=== PATIENT | male | born 1960 | race Caucasian/White ===

== ENCOUNTER → 2016-09-27 | Outpatient (CLI) | payer BC ==
[~2016-09-27] MED LIST: AMBIEN CR12.5 MG PO; ANTIVERT/2525 M1 PO; ASPIRIN81 M1 PO; ATIVAN1 MG PO; BENICAR HCT 12.1 TA1 PO; CO Q-10 100 MG-1 SGL PO; CRESTOR5 MG PO; DEXILANT60 M1 PO; DIFLUCAN100 MG PO; FISH OIL1000 MG PO; GINGER ROOT550 MG PO; HYCODAN,HYDROME10 ML PO; HYDR25T PO; K-DUR 2020 MEQ PO; K-DUR 20MEQ20 MEQ PO; LEVOFLOXACIN500 MG PO; LISINOPRIL10 MG PO; LISINOPRIL20 MG PO; LORATADINE10 M1 PO; MOTRIN800 MG PO; MULTIVITAMIN1 CTB PO; Motrin,Rufen800 MG PO; NORVASC10 MG PO; NORVASC2.5 MG PO; OMEPRAZOLE20 M2 PO; PEPCID20 MG PO; REGLAN10 M1 PO; VITAMIN D400 I1 PO; ZOFRAN ODT4 MG SL
--- NOTE | ~2016-09-27 | PR ---
[place], [place] PROGRESS NOTE NAME: NBA LEONARD UNIT #: [id number] ROOM: DOCTOR: MARJAN WYATT MD,FRANCISCOBIRTHDATE: [birth year] DOS: 10/02/2016 HOLTER MONITOR Holter monitor was done for 48 hours. The patient had 4 hours 27 minutes of sinus bradycardia with a minimal heart rate of 47. The patient had 30 minutes of tachycardia at the time he was exercising with a heart rate of 160, supraventricular beats 6. No ventricular arrhythmias were seen. Holter monitor is remarkable for sinus bradycardia of an athletic person with sinus tachycardia during exercise. No other abnormalities are seen. RAMON PHILLIP MD CM:PNTRANS [id number] FRANCISCO WYATT MD 10/05/16 0642 RUFINO [email or web address].TM
--- NOTE | ~2016-09-27 | HM ---
[place], [place] HOLTER MONITOR REPORT NAME: NBA LEONARD UNIT #: [id number] ROOM: DOCTOR: MARJAN WYATT MD,FRANCISCO BIRTHDATE: [birth year] DOS: 10/02/2016 HOLTER MONITOR Holter monitor was done for 48 hours. The patient had 4 hours 27 minutes of sinus bradycardia with a minimal heart rate of 47. The patient had 30 minutes of tachycardia at the time he was exercising with a heart rate of 160, supraventricular beats 6. No ventricular arrhythmias were seen. Holter monitor is remarkable for sinus bradycardia of an athletic person with sinus tachycardia during exercise. No other abnormalities are seen. RAMON PHILLIP MD CM:HOLTER:HOLTER MONITOR REPORT [id number] [id number] FRANCISCO WYATT MD
== END | disposition home or self-care (01) ==
LOC: CARD 08:26
DX: R00.2 Palpitations (principal)

== ENCOUNTER → 2016-09-29 | Outpatient (CLI) | payer BC ==
[2016-09-29 08:49] LABS: HEMOGLOBIN A1c 5.4 % (4.8-5.6)
[2016-09-29 08:54] LABS: ALBUMIN 4.2 gm/dl (3.1-4.5); ALKALINE PHOSPHATASE 129 U/L (45-117); BILIRUBIN, TOTAL 0.9 mg/dl (0.2-1.0); BUN 16 mg/dl (7-24); CARBON DIOXIDE 30 mmol/L (21-32); CHLORIDE 104 mmol/L (98-107); CHOLESTEROL 138 mg/dL (<200); EST GLOM FILT AFRICAN AMERICAN > 60 ml/min; GLUCOSE 114 mg/dL (65-99); HDL CHOLESTEROL 43 mg/dl (40-60); LDL CHOLESTEROL 78 mg/dL (9-159); POTASSIUM 3.7 mmol/L (3.5-5.1); SGOT/AST 14 IU/L (3-35); SGPT/ALT 24 U/L (12-78); SODIUM 141 mmol/L (136-145); TRIGLYCERIDES 87 mg/dl (<150); VLDL CHOLESTEROL 17 mg/dL (6-40)
[2016-09-30 17:09] LABS: TESTOSTERONE FREE, (DIRECT) 8.1 pg/mL (7.2-24.0)
== END | disposition home or self-care (01) ==
LOC: LAB 07:38
PROVIDERS: Internal Medicine Endocrinology, Diabetes & Metabolism
DX: I10 Essential (primary) hypertension (principal); E29.1 Testicular hypofunction; R73.01 Impaired fasting glucose

== ENCOUNTER → 2017-02-26 | Day surgery (SDC) | payer BC ==
[~2017-02-26] VITALS: Ht 182.8 cm; Wt 89.8 kg
[~2017-02-26] MED LIST changes: +LOPRESSOR25 MG PO
--- NOTE | ~2017-02-26 | O ---
[place], [place] OPERATIVE NOTE NAME: NBA LEONARD UNIT #: [id number] ROOM: DOCTOR: RAMILA TANEDDIE BIRTHDATE: [birth year] DOS: HISTORY OF PRESENT ILLNESS: A 56-year-old patient who presented with chief complaint of epigastric abdominal pain, right-sided chest pain and distress. PAST MEDICAL HISTORY: Hypertension, coronary artery disease and recent stent. PAST SURGICAL HISTORY: Multiple small orthopedic surgeries. FAMILY HISTORY: Noncontributory. PROCEDURE: Today's procedure part of investigation is panendoscopy plus biopsy. PREMEDICATION: Versed and Diprivan. SCOPE: Olympus forward-viewing gastroscope Q10 video. REPORT: After putting the patient in the left lateral position and after application of lubricant to the scope, the scope was introduced. Thereafter, under direct visualization, I advanced through the length of esophagus without difficulty. A tiny hiatal hernia was noticed. Gastric pouch was entered. Mild gastritis was seen. Duodenal bulb, second and third part are within normal limit. No ulceration, no obstruction, no pathology identified. No active bleeding, no other issues of concern clinically noticed. GI reflection of the scope reveals cardia to be benign. Air was suctioned out. The patient was extubated, tolerated procedure well. IMPRESSION: Very mild gastritis, very small tiny hiatal hernia about 1 cm. PLAN AND DISCUSSION: Continuation with Protonix, supportive management. Gaviscon 1 tablet p.o. a.c. meals and p.r.n. and 1 at bedtime, antireflux measures with elevation of the head of the bed 6 inches all time and I will be discussing with him. I have reviewed his CT scan of the abdomen and pelvis from past years and I have reviewed his CTA of the chest from past years. They have been always negative. He has recently got cardiac catheterization and 90%, one vessel disease was stented. He is on Plavix. If he is uncertain of his status of the chest distress, then I will reorganize another CT scan of the chest in future. At this present time, he most likely is anxious because of the occult pathology that may be on board. [place], [place] OPERATIVE NOTE NAME: NBA LEONARD UNIT #: [id number] ROOM: DOCTOR: RAMILA TAN,EDDIE BIRTHDATE: [birth year] EDDIE MCGRATH MD CM:OPRECORD:OPERATIVE NOTE [id number] EDDIE MCGRATH MD 02/26/17 1606 interface
[2017-02-26 12:30] VITALS: BP 117/52
[2017-02-26 13:25] VITALS: BP 87/35
[2017-02-26 13:40] VITALS: BP 112/56
[2017-02-26 13:55] VITALS: BP 119/63
== END | disposition home or self-care (01) ==
LOC: SDC 12:37
DX: K29.50 Unspecified chronic gastritis without bleeding (principal); K44.9 Diaphragmatic hernia without obstruction or gangrene; I10 Essential (primary) hypertension; I25.10 Atherosclerotic heart disease of native coronary artery without angina pectoris; Z79.899 Other long term (current) drug therapy; Z98.890 Other specified postprocedural states; K21.9 Gastro-esophageal reflux disease without esophagitis; E78.00 Pure hypercholesterolemia, unspecified; Z95.818 Presence of other cardiac implants and grafts; Z83.3 Family history of diabetes mellitus; Z82.49 Family history of ischemic heart disease and other diseases of the circulatory system; Z82.3 Family history of stroke

== ENCOUNTER → 2017-03-01 | Outpatient (CLI) | payer BC ==
[2017-03-01 14:01] LABS: EST GLOM FILT AFRICAN AMERICAN > 60 ml/min
== END | disposition home or self-care (01) ==
LOC: LAB 01:46 → CT 14:00 → LAB 14:00
PROVIDERS: Internal Medicine Gastroenterology
DX: R91.1 Solitary pulmonary nodule (principal); I10 Essential (primary) hypertension; Z95.5 Presence of coronary angioplasty implant and graft

== ENCOUNTER → 2017-03-04 | Outpatient (CLI) | payer BC ==
[2017-03-04 17:26] LABS: BASO % 0.6 % (0.0-1.0); EOS # 0.1 10*3/uL (0.0-0.4); HEMATOCRIT 43.7 % (42.0-52.0); HEMOGLOBIN 14.9 g/dl (14.0-18.0); LYMPH # 1.9 10*3/uL (1.3-4.4); MEAN CELL VOLUME 88.6 fl (80.0-94.0); MEAN CORPUSCULAR HGB 30.2 pg (27.0-31.0); MEAN CORPUSCULAR HGB CONC 34.1 g/dl (33.0-37.0); MEAN PLATELET VOLUME 10.2 fl (9.6-12.3); MONO # 0.6 10*3/uL (0.1-1.0); MONO % 8.5 % (3.0-9.0); NEUT # 4.2 10*3/uL (2.3-7.9); NEUT % 60.6 % (47.0-73.0); PLATELET COUNT AUTOMATED 218 10*3/uL (130-400); RED BLOOD COUNT 4.93 10*6/uL (4.50-5.90); RED CELL DISTRI WIDTH 11.5 % (0-14.5); WHITE BLOOD COUNT 6.9 10*3/uL (4.8-10.8)
[2017-03-04 17:42] LABS: HEMOGLOBIN A1c 5.7 % (4.8-5.6)
[2017-03-04 17:45] LABS: ALKALINE PHOSPHATASE 99 U/L (45-117); BILIRUBIN, TOTAL 0.5 mg/dl (0.2-1.0); BUN 12 mg/dl (7-24); CARBON DIOXIDE 30 mmol/L (21-32); CHLORIDE 106 mmol/L (98-107); EST GLOM FILT AFRICAN AMERICAN > 60 ml/min; GLUCOSE 98 mg/dL (65-99); MAGNESIUM 2.4 mg/dL (1.5-2.1); PHOSPHOROUS 2.6 mg/dL (2.5-4.9); POTASSIUM 4.1 mmol/L (3.5-5.1); SGOT/AST 14 IU/L (3-35); SGPT/ALT 28 U/L (12-78); SODIUM 144 mmol/L (136-145); TOTAL PROTEIN 7.1 gm/dL (6.4-8.2)
[2017-03-04 17:46] LABS: FREE T4 1.08 ng/dl (0.76-1.46)
[2017-03-04 17:51] LABS: THYROID STIM HORMONE (HS) 0.657 uIU/ml (0.358-4.75)
[2017-03-04 19:15] LABS: VITAMIN D, 25-HYDROXY 38.3 ng/mL (30-100)
[2017-03-04 19:16] LABS: FOLIC ACID 10.38 ng/mL (>5.38)
== END | disposition home or self-care (01) ==
LOC: LAB 16:58
PROVIDERS: Emergency Medicine
DX: R53.83 Other fatigue (principal); R06.02 Shortness of breath; R42 Dizziness and giddiness

== ENCOUNTER → 2017-03-06 | Outpatient (CLI) | payer BC ==
[~2017-03-06] MED LIST changes: +ASPIRIN81 MG PO; +CLOPIDOGREL75 MG PO; +ESCITALOPRAM OX10 MG PO; +PROTONIX20 MG PO
== END | disposition home or self-care (01) ==
LOC: CARD 11:55
DX: I08.1 Rheumatic disorders of both mitral and tricuspid valves (principal)

== ENCOUNTER 2017-03-07 05:41 | Emergency (ER) | payer BC ==
[~2017-03-07] VITALS: Ht 182.8 cm; Wt 89.4 kg
[~2017-03-07 05:41] MED LIST changes: -ASPIRIN81 MG PO; -CLOPIDOGREL75 MG PO; -ESCITALOPRAM OX10 MG PO; -PROTONIX20 MG PO
[2017-03-07] MEDS ORDERED: PROTONIX20 MG PO (05:47)
[2017-03-07] MEDS ORDERED: ASPIRIN81 MG PO (05:48)
[2017-03-07] MEDS ORDERED: CLOPIDOGREL75 MG PO (05:49)
[2017-03-07] MEDS ORDERED: ESCITALOPRAM OX10 MG PO (05:50)
[2017-03-07 06:17] LABS: BASO # 0.1 10*3/uL (0.0-0.1); BASO % 0.8 % (0.0-1.0); EOS # 0.2 10*3/uL (0.0-0.4); EOS % 2.4 % (1.0-4.0); HEMATOCRIT 42.8 % (42.0-52.0); HEMOGLOBIN 14.6 g/dl (14.0-18.0); LYMPH # 1.9 10*3/uL (1.3-4.4); LYMPH % 29.6 % (27.0-41.0); MEAN CELL VOLUME 87.9 fl (80.0-94.0); MEAN CORPUSCULAR HGB CONC 34.1 g/dl (33.0-37.0); MEAN PLATELET VOLUME 10.7 fl (9.6-12.3); MONO # 0.5 10*3/uL (0.1-1.0); MONO % 7.9 % (3.0-9.0); NEUT # 3.9 10*3/uL (2.3-7.9); PLATELET COUNT AUTOMATED 182 10*3/uL (130-400); RED BLOOD COUNT 4.87 10*6/uL (4.50-5.90); RED CELL DISTRI WIDTH 11.5 % (0-14.5); WHITE BLOOD COUNT 6.6 10*3/uL (4.8-10.8)
[2017-03-07 06:26] LABS: PROTHROMBIN TIME 10.8 SECONDS (9.0-12.4)
[2017-03-07 07:14] LABS: CHLORIDE 106 mmol/L (98-107); POTASSIUM 4.1 mmol/L (3.5-5.1); SODIUM 143 mmol/L (136-145)
[2017-03-07 07:29] LABS: ALBUMIN 3.9 gm/dl (3.1-4.5); ALKALINE PHOSPHATASE 89 U/L (45-117); BILIRUBIN, TOTAL 0.6 mg/dl (0.2-1.0); BUN 10 mg/dl (7-24); CARBON DIOXIDE 27 mmol/L (21-32); EST GLOM FILT AFRICAN AMERICAN > 60 ml/min; GLUCOSE 121 mg/dL (65-99); MAGNESIUM 2.5 mg/dL (1.5-2.1); SGOT/AST 18 IU/L (3-35); SGPT/ALT 26 U/L (12-78); TOTAL PROTEIN 6.5 gm/dL (6.4-8.2)
[2017-03-07 07:30] LABS: TROPONIN I < 0.015 ng/ml (<0.045)
[2017-03-07 07:31] VITALS: BP 142/75
== END 2017-03-07 08:01 | disposition short-term general hospital (02) ==
LOC: ED 05:41
PROVIDERS: Emergency Medicine Emergency Medical Services
DX: R00.1 Bradycardia, unspecified (principal); F41.9 Anxiety disorder, unspecified; R06.02 Shortness of breath; R68.84 Jaw pain; R42 Dizziness and giddiness; R55 Syncope and collapse; R61 Generalized hyperhidrosis; I25.10 Atherosclerotic heart disease of native coronary artery without angina pectoris; Z88.6 Allergy status to analgesic agent; Z88.8 Allergy status to other drugs, medicaments and biological substances; Z79.899 Other long term (current) drug therapy; Z79.82 Long term (current) use of aspirin; Z98.61 Coronary angioplasty status

== ENCOUNTER 2017-03-29 02:21 | Emergency (ER) | payer BC ==
[~2017-03-29] VITALS: Ht 182.8 cm; Wt 90.7 kg
[~2017-03-29 02:21] MED LIST changes: +ASPIRIN81 MG PO; +CLOPIDOGREL75 MG PO; +ESCITALOPRAM OX10 MG PO; +PROTONIX20 MG PO
[2017-03-29] MEDS ORDERED: TESTOSTERO200 MG/10 IM (02:40)
[2017-03-29] MEDS ORDERED: ATIVAN0.5 MG PO (02:44)
[2017-03-29 03:14] LABS: BASO # 0.1 10*3/uL (0.0-0.1); BASO % 0.7 % (0.0-1.0); EOS # 0.3 10*3/uL (0.0-0.4); EOS % 4.3 % (1.0-4.0); HEMATOCRIT 42.7 % (42.0-52.0); HEMOGLOBIN 14.6 g/dl (14.0-18.0); LYMPH # 2.8 10*3/uL (1.3-4.4); LYMPH % 36.9 % (27.0-41.0); MEAN CELL VOLUME 87.1 fl (80.0-94.0); MEAN CORPUSCULAR HGB 29.8 pg (27.0-31.0); MEAN CORPUSCULAR HGB CONC 34.2 g/dl (33.0-37.0); MEAN PLATELET VOLUME 10.5 fl (9.6-12.3); MONO # 0.8 10*3/uL (0.1-1.0); MONO % 10.4 % (3.0-9.0); NEUT # 3.7 10*3/uL (2.3-7.9); NEUT % 47.6 % (47.0-73.0); PLATELET COUNT AUTOMATED 196 10*3/uL (130-400); RED CELL DISTRI WIDTH 11.9 % (0-14.5); WHITE BLOOD COUNT 7.7 10*3/uL (4.8-10.8)
[2017-03-29 03:31] LABS: ALBUMIN 3.7 gm/dl (3.1-4.5); ALKALINE PHOSPHATASE 101 U/L (45-117); BILIRUBIN, TOTAL 0.4 mg/dl (0.2-1.0); BUN 14 mg/dl (7-24); CARBON DIOXIDE 28 mmol/L (21-32); CHLORIDE 107 mmol/L (98-107); EST GLOM FILT AFRICAN AMERICAN > 60 ml/min; GLUCOSE 99 mg/dL (65-99); MAGNESIUM 2.4 mg/dL (1.5-2.1); POTASSIUM 3.7 mmol/L (3.5-5.1); SGOT/AST 17 IU/L (3-35); SGPT/ALT 22 U/L (12-78); SODIUM 144 mmol/L (136-145); TOTAL PROTEIN 6.4 gm/dL (6.4-8.2)
[2017-03-29 03:32] LABS: TROPONIN I < 0.015 ng/ml (<0.045)
[2017-03-29 06:37] VITALS: BP 130/64
[2017-03-29] MEDS ORDERED: XANAX0.25 MG PO (07:07)
== END 2017-03-29 07:18 | disposition home or self-care (01) ==
LOC: ED 02:21
PROVIDERS: Emergency Medicine Emergency Medical Services
DX: F41.9 Anxiety disorder, unspecified (principal); R42 Dizziness and giddiness; R07.89 Other chest pain; I25.10 Atherosclerotic heart disease of native coronary artery without angina pectoris; K21.9 Gastro-esophageal reflux disease without esophagitis; Z88.6 Allergy status to analgesic agent; Z88.8 Allergy status to other drugs, medicaments and biological substances; Z79.82 Long term (current) use of aspirin; Z79.899 Other long term (current) drug therapy; Z95.1 Presence of aortocoronary bypass graft

== ENCOUNTER → 2017-05-25 | Outpatient (CLI) | payer BC ==
[~2017-05-25] MED LIST changes: +ATIVAN0.5 MG PO; +TESTOSTERO200 MG/10 IM; +XANAX0.25 MG PO
[2017-05-25 13:07] LABS: ALBUMIN 3.9 gm/dl (3.1-4.5); ALKALINE PHOSPHATASE 106 U/L (45-117); BUN 13 mg/dl (7-24); CHLORIDE 105 mmol/L (98-107); CREATININE 1.16 mg/dL (0.70-1.30); SGOT/AST 15 IU/L (3-35); SGPT/ALT 29 U/L (12-78); SODIUM 141 mmol/L (136-145); TOTAL PROTEIN 7.1 gm/dL (6.4-8.2)
== END | disposition home or self-care (01) ==
LOC: LAB 12:05 → US 12:30
PROVIDERS: Internal Medicine
DX: K21.9 Gastro-esophageal reflux disease without esophagitis (principal); R10.11 Right upper quadrant pain; K76.89 Other specified diseases of liver; R10.84 Generalized abdominal pain

== ENCOUNTER 2017-06-28 01:14 | Emergency (ER) | payer BC ==
[~2017-06-28] VITALS: Ht 182.8 cm; Wt 89.4 kg
[2017-06-28] MEDS ORDERED: PRINIVIL10 MG PO (01:30)
[2017-06-28 05:47] VITALS: BP 138/80
== END 2017-06-28 05:53 | disposition home or self-care (01) ==
LOC: ED 01:14
DX: G43.919 Migraine, unspecified, intractable, without status migrainosus (principal); K21.9 Gastro-esophageal reflux disease without esophagitis; Z88.6 Allergy status to analgesic agent; Z88.8 Allergy status to other drugs, medicaments and biological substances; Z79.899 Other long term (current) drug therapy; Z79.82 Long term (current) use of aspirin

== ENCOUNTER 2017-07-01 10:22 | Emergency (ER) | payer BC ==
[~2017-07-01] VITALS: Ht 182.8 cm; Wt 89.4 kg
[~2017-07-01 10:22] MED LIST changes: +PRINIVIL10 MG PO
[2017-07-01 11:42] LABS: BASO % 0.5 % (0.0-1.0); EOS # 0.2 10*3/uL (0.0-0.4); EOS % 1.9 % (1.0-4.0); HEMATOCRIT 45.9 % (42.0-52.0); HEMOGLOBIN 15.5 g/dl (14.0-18.0); LYMPH # 1.8 10*3/uL (1.3-4.4); MEAN CORPUSCULAR HGB 28.7 pg (27.0-31.0); MEAN CORPUSCULAR HGB CONC 33.8 g/dl (33.0-37.0); MEAN PLATELET VOLUME 10.1 fl (9.6-12.3); MONO # 0.7 10*3/uL (0.1-1.0); MONO % 8.4 % (3.0-9.0); NEUT # 5.7 10*3/uL (2.3-7.9); PLATELET COUNT AUTOMATED 221 10*3/uL (130-400); WHITE BLOOD COUNT 8.4 10*3/uL (4.8-10.8)
[2017-07-01 11:57] LABS: ACT PARTIAL THROMBO TIME 25.8 SECONDS (20.8-31.5)
[2017-07-01 11:58] LABS: ALKALINE PHOSPHATASE 111 U/L (45-117); BUN 13 mg/dl (7-24); CHLORIDE 105 mmol/L (98-107); CREATININE 0.95 mg/dL (0.70-1.30); MAGNESIUM 2.3 mg/dL (1.5-2.1); POTASSIUM 4.1 mmol/L (3.5-5.1); SGOT/AST 18 IU/L (3-35); SGPT/ALT 32 U/L (12-78); SODIUM 140 mmol/L (136-145); TOTAL PROTEIN 6.9 gm/dL (6.4-8.2)
[2017-07-01 11:59] LABS: ETHYL ALCOHOL < 3.0 mg/dl (<3); TROPONIN I < 0.015 ng/ml (<0.045)
[2017-07-01 13:15] VITALS: BP 128/56
== END 2017-07-01 13:20 | disposition short-term general hospital (02) ==
LOC: ED 10:22
PROVIDERS: Emergency Medicine
DX: R51 Headache (principal); R41.0 Disorientation, unspecified; R26.9 Unspecified abnormalities of gait and mobility; Z88.8 Allergy status to other drugs, medicaments and biological substances

== ENCOUNTER 2017-07-09 21:20 | Inpatient (IN) | payer BC ==
[~2017-07-09] VITALS: Ht 182.9 cm; Wt 89.1 kg
[2017-07-09] VITALS (11 sets, daily range): BP systolic 122–215; BP diastolic 54–124
[~2017-07-09 21:20] MED LIST changes: +CRESTOR10 M1 PO; -CRESTOR5 MG PO
[2017-07-09 22:19] LABS: BASO % 0.4 % (0.0-1.0); EOS # 0.3 10*3/uL (0.0-0.4); EOS % 2.9 % (1.0-4.0); HEMATOCRIT 44.5 % (42.0-52.0); HEMOGLOBIN 15.4 g/dl (14.0-18.0); LYMPH # 3.4 10*3/uL (1.3-4.4); LYMPH % 35.9 % (27.0-41.0); MEAN CELL VOLUME 84.4 fl (80.0-94.0); MEAN CORPUSCULAR HGB 29.2 pg (27.0-31.0); MEAN CORPUSCULAR HGB CONC 34.6 g/dl (33.0-37.0); MEAN PLATELET VOLUME 10.1 fl (9.6-12.3); MONO # 0.9 10*3/uL (0.1-1.0); MONO % 9.6 % (3.0-9.0); NEUT # 4.8 10*3/uL (2.3-7.9); NEUT % 50.8 % (47.0-73.0); PLATELET COUNT AUTOMATED 208 10*3/uL (130-400); RED BLOOD COUNT 5.27 10*6/uL (4.50-5.90); WHITE BLOOD COUNT 9.5 10*3/uL (4.8-10.8)
--- NOTE | 2017-07-09 22:26 | NUR ---
INCREASED CARDINE FROM 5MG TO 7.5 MG PER TITRATE ORDER BP 168/93 AB
[2017-07-09 22:30] LABS: ACT PARTIAL THROMBO TIME 25.1 SECONDS (20.8-31.5)
[2017-07-09 22:38] LABS: ALBUMIN 3.8 gm/dl (3.1-4.5); ALKALINE PHOSPHATASE 94 U/L (45-117); BUN 16 mg/dl (7-24); CHLORIDE 102 mmol/L (98-107); CREATININE 1.16 mg/dL (0.70-1.30); POTASSIUM 3.9 mmol/L (3.5-5.1); SGOT/AST 13 IU/L (3-35); SGPT/ALT 29 U/L (12-78); SODIUM 137 mmol/L (136-145); TOTAL PROTEIN 6.7 gm/dL (6.4-8.2)
[2017-07-09 22:43] LABS: TROPONIN I < 0.015 ng/ml (<0.045)
--- NOTE | 2017-07-09 22:43 | NUR ---
TITRATED TO 10MG NICARDIPINE
--- NOTE | 2017-07-09 22:53 | NUR ---
PT TO CT
--- NOTE | 2017-07-09 23:43 | NUR ---
TITRATE BACK TO 7.5MG
[2017-07-10] VITALS (34 sets, daily range): BP systolic 103–145; BP diastolic 51–86
--- NOTE | 2017-07-10 01:44 | NUR ---
PT STILL C/O HEADACHE AFTER TORADOL RATED 6/10.
--- NOTE | 2017-07-10 02:20 | NUR ---
A 56, admitted to [facility], under the services of IVANA Ford DO with a diagnosis of HYPERTENSIVE EMERGENCY. Chief complaint is HEADACHE. Patient arrived via stretcher from ER. Monitor applied. Initial assessment completed. Vital signs taken and recorded. IVANA FORD DO notified of admission to the unit. Orders received. See assessment for past medical history, medications and allergies. Patient and/or family oriented to unit. [facility] visitation policy reviewed. Clothing/patient valuable form completed. JAM SEAY
[2017-07-10] MEDS ORDERED: OMEPRAZOLE40 MG PO (02:39)
--- NOTE | 2017-07-10 02:44 | NUR ---
MEDICATED WITH PO IMETREX ORDERED FOR C/O HEADACHE.
--- NOTE | 2017-07-10 02:58 | NUR ---
MEDICATED WITH PO ATIVAN ORDERED PER PT REQUEST FOR C/O ANXIETY.
--- NOTE | 2017-07-10 02:59 | NUR ---
MEDICATED WITH PO RESTORIL ORDERED PER PT REQUEST FOR C/O INSOMNIA.
[2017-07-10 04:53] LABS: BASO # 0.1 10*3/uL (0.0-0.1); BASO % 0.5 % (0.0-1.0); EOS # 0.3 10*3/uL (0.0-0.4); EOS % 2.4 % (1.0-4.0); HEMATOCRIT 48.8 % (42.0-52.0); HEMOGLOBIN 16.8 g/dl (14.0-18.0); LYMPH # 3.3 10*3/uL (1.3-4.4); LYMPH % 28.5 % (27.0-41.0); MEAN CELL VOLUME 85.3 fl (80.0-94.0); MEAN CORPUSCULAR HGB 29.4 pg (27.0-31.0); MEAN CORPUSCULAR HGB CONC 34.4 g/dl (33.0-37.0); MONO # 0.9 10*3/uL (0.1-1.0); MONO % 8.1 % (3.0-9.0); NEUT # 6.9 10*3/uL (2.3-7.9); NEUT % 59.9 % (47.0-73.0); PLATELET COUNT AUTOMATED 204 10*3/uL (130-400); RED BLOOD COUNT 5.72 10*6/uL (4.50-5.90); WHITE BLOOD COUNT 11.5 10*3/uL (4.8-10.8)
[2017-07-10 05:10] LABS: BUN 14 mg/dl (7-24); CHLORIDE 103 mmol/L (98-107); CHOLESTEROL 174 mg/dL (<200); CREATININE 0.92 mg/dL (0.70-1.30); HDL CHOLESTEROL 47 mg/dl (40-60); LDL CHOLESTEROL 82 mg/dL (9-159); PHOSPHOROUS 3.2 mg/dL (2.5-4.9); SODIUM 137 mmol/L (136-145); TRIGLYCERIDES 225 mg/dl (<150); VLDL CHOLESTEROL 45 mg/dL (6-40)
[2017-07-10 05:17] LABS: THYROID STIM HORMONE (HS) 0.743 uIU/ml (0.358-4.75)
--- NOTE | 2017-07-10 06:00 | NUR ---
MEDICATIONS APPEAR TO EFFECTIVE PT IS RESTING W/OUT ANY NOTED DISTRESS.
[2017-07-10 07:03] LABS: VITAMIN D, 25-HYDROXY 27.3 ng/mL (30-100)
--- NOTE | 2017-07-10 08:40 | NUR ---
DR ARANGO IN TO SEE PT. DISCUSSED PT'S CONDITION AND PLAN OF CARE WITH PT. NEW ORDERS RECEIVED.
--- NOTE | 2017-07-10 09:10 | NUR ---
IV REGLAN,IV TORADOL, AND PO TYLENOL GIVEN PER ORDER FOR PT'SC/O MIGRAINE MENDEZ THAT RATES AN 8/10 ON PAIN SCALE. PT'S IN TO VISIT. UPDATED HER ON PT'S CONDITION AND PLAN OF CARE.
--- NOTE | 2017-07-10 09:33 | NUR ---
PT'S SBP 108. DECREASED CARDENE GTT TO 2.5MG/HR. WILL CONTINUE TO MONITOR PT.
--- NOTE | 2017-07-10 10:00 | NUR ---
PT STATES HIS MENDEZ NOW RATES 5/10 ON PAIN SCALE.
--- NOTE | 2017-07-10 10:30 | NUR ---
DR. COATS IN TO SEE PT. NEW ORDERS RECEIVED.
--- NOTE | 2017-07-10 10:35 | NUR ---
NOTIFIED DR CASTELLANOS'S ANSWERING SERVICE OF CONSULT.
--- NOTE | 2017-07-10 10:54 | NUR ---
MEDICATED PT PER PRN ORDER WITH FIORCET FOR C/O MIGRAINE THAT RATES5/10 ON PAIN SCALE. IV CARDENE D/C'DFOR BP SBP 103.
--- NOTE | 2017-07-10 13:46 | NUR ---
DR CASTELLANOS IN TO SEE PT.
--- NOTE | 2017-07-10 13:56 | NUR ---
NOTIFIED DR CHOWDHURY PT STILL HAS MENDEZ. PT RATES MENDEZ A 4/10 ON PAIN SCALE. UPDATED HER ON WHAT PT WAS GIVEN AT [facility] RECENTLY WHICH DID RELIEVE HIS MENDEZ.
--- NOTE | 2017-07-10 14:33 | NUR ---
MEDICATED PT WITH IV DECADRON,BENADYLAND DILAUDID FOR PT'S C/O CONTINUED MIGRAINE MENDEZ THAT RATES A 7/10 ON PAIN SCALE. ALSO MEDICATED PT PER PRN ORDER WITH ZOFRAN FOR NAUSEA PREVENTION.
--- NOTE | 2017-07-10 15:00 | NUR ---
PT STATES PAIN IS NOW A 2/10 ON PAIN SCALE. PT DENIESNAUSEA. EARLIER MEDS EFFECTIVE FOR PT'S PAIN AND NAUSEA.
--- NOTE | 2017-07-10 16:30 | NUR ---
DR CAOTS AND DR MUHAMMAD IN TO SEE PT.
--- NOTE | 2017-07-10 21:27 | NUR ---
PT ANXIOUS AND STATES HE FEELS HE WOULD LIKE TO TRY XANAX INSTEAD OF ATIVAN. HE FEELS ATIVAN IS NOT HELPING ENOUGH. DR MILLAN NOTIFIED AND NEW ORDERS RECEIVED.
--- NOTE | 2017-07-10 22:20 | NUR ---
MEDICATED WITH RESTORIL PER PRN ORDER FOR C/O INSOMNIA.
[2017-07-11] VITALS: BP 131/81
[2017-07-11 04:00] VITALS: BP 111/66
--- NOTE | 2017-07-11 04:00 | NUR ---
RESTORIL AND XANAX EFFECTIVE.
[2017-07-11 05:10] LABS: HEMOGLOBIN 15.2 g/dl (14.0-18.0); MEAN CELL VOLUME 83.7 fl (80.0-94.0); MEAN CORPUSCULAR HGB 28.9 pg (27.0-31.0); MEAN CORPUSCULAR HGB CONC 34.5 g/dl (33.0-37.0); MEAN PLATELET VOLUME 9.8 fl (9.6-12.3); PLATELET COUNT AUTOMATED 222 10*3/uL (130-400); RED BLOOD COUNT 5.26 10*6/uL (4.50-5.90); RED CELL DISTRI WIDTH 11.7 % (0-14.5); WHITE BLOOD COUNT 18.4 10*3/uL (4.8-10.8)
[2017-07-11 05:33] LABS: ATYPICAL LYMPHS 1 % (0-0); TOTAL CELLS COUNTED 100 #CELLS
[2017-07-11 05:34] LABS: PLATELET SUFFICIENCY NORMAL (NORMAL)
[2017-07-11 05:39] LABS: ALBUMIN 3.6 gm/dl (3.1-4.5); ALKALINE PHOSPHATASE 89 U/L (45-117); BUN 18 mg/dl (7-24); CHLORIDE 101 mmol/L (98-107); POTASSIUM 4.4 mmol/L (3.5-5.1); SGOT/AST 17 IU/L (3-35); SGPT/ALT 33 U/L (12-78); SODIUM 135 mmol/L (136-145); TOTAL PROTEIN 6.5 gm/dL (6.4-8.2)
[2017-07-11 08:00] VITALS: BP 131/79
[2017-07-11] MEDS ORDERED: LISINOPRIL20 MG PO (10:08)
--- NOTE | 2017-07-11 10:50 | NUR ---
PATIENT DISCHARGED TO HOME. ALL PERSONAL BELONGINGS SENT WITH PATIENT. IVS DISCONTINUED. CHIEF DOG LICENSE INSPECTOR DISCONTINUED. DISCHARGE INSTRUCTIONS GIVEN AND REVIEWED WITH PATIENT. PATIENT INFORMED THAT PRESCRIPTION WAS SENT TO HIS PHARMACY.
== END 2017-07-11 10:50 | disposition home or self-care (01) | DRG 102 ==
LOC: ED 21:20 → EDHOLD 07-10 01:09 → ICCU 07-10 01:09
PROVIDERS: Emergency Medicine Emergency Medical Services; Internal Medicine; Student in an Organized Health Care Education/Training Program; ADMIT Internal Medicine
DX: G43.911 Migraine, unspecified, intractable, with status migrainosus (principal); I77.71 Dissection of carotid artery; I16.1 Hypertensive emergency; I10 Essential (primary) hypertension; E66.3 Overweight; K21.9 Gastro-esophageal reflux disease without esophagitis; I25.10 Atherosclerotic heart disease of native coronary artery without angina pectoris; F41.8 Other specified anxiety disorders; E78.5 Hyperlipidemia, unspecified; I25.2 Old myocardial infarction; Z98.61 Coronary angioplasty status; Z88.8 Allergy status to other drugs, medicaments and biological substances; Z79.899 Other long term (current) drug therapy; Z79.82 Long term (current) use of aspirin; Z83.3 Family history of diabetes mellitus; Z82.49 Family history of ischemic heart disease and other diseases of the circulatory system; Z82.3 Family history of stroke; Z68.26 Body mass index [BMI] 26.0-26.9, adult

== ENCOUNTER → 2017-07-13 | Outpatient (CLI) | payer BC ==
[~2017-07-13] MED LIST changes: +OMEPRAZOLE40 MG PO
== END | disposition home or self-care (01) ==
LOC: LAB 15:20
DX: I77.3 Arterial fibromuscular dysplasia (principal)

== ENCOUNTER → 2017-08-08 | Outpatient (CLI) | payer BC ==
[2017-08-08 07:53] LABS: BILIRUBIN NEGATIVE (NEGATIVE); BLOOD NEGATIVE (NEGATIVE); CLARITY CLEAR (CLEAR); COLOR YELLOW (YELLOW); GLUCOSE NEGATIVE (NEGATIVE); KETONE NEGATIVE (NEGATIVE); LEUKO ESTERASE NEGATIVE (NEGATIVE); NITRITE NEGATIVE (NEGATIVE); PH 5.5 (5.0-9.0); SPECIFIC GRAVITY <= 1.005 (1.005-1.030); UROBILINOGEN 0.2 E.U./dl (0.2-1.0)
[2017-08-08 08:12] LABS: RBC 0-2 rbc/hpf (0-2); WBC 0-2 wbc/hpf (0-5)
[2017-08-08 08:27] LABS: ALBUMIN 3.8 gm/dl (3.1-4.5); BUN 13 mg/dl (7-24); CHLORIDE 103 mmol/L (98-107); CREATININE 0.98 mg/dL (0.70-1.30); PHOSPHOROUS 3.4 mg/dL (2.5-4.9); POTASSIUM 3.9 mmol/L (3.5-5.1); SODIUM 139 mmol/L (136-145)
== END | disposition home or self-care (01) ==
LOC: LAB 07:23
PROVIDERS: Internal Medicine Nephrology
DX: I10 Essential (primary) hypertension (principal)

== ENCOUNTER → 2017-10-08 | Outpatient (CLI) | payer BC ==
[2017-10-08 15:33] LABS: BILIRUBIN NEGATIVE (NEGATIVE); BLOOD NEGATIVE (NEGATIVE); CLARITY CLEAR (CLEAR); COLOR YELLOW (YELLOW); GLUCOSE NEGATIVE (NEGATIVE); KETONE NEGATIVE (NEGATIVE); LEUKO ESTERASE NEGATIVE (NEGATIVE); NITRITE NEGATIVE (NEGATIVE); PH 6.5 (5.0-9.0); SPECIFIC GRAVITY <= 1.005 (1.005-1.030); UROBILINOGEN 0.2 E.U./dl (0.2-1.0)
[2017-10-08 15:39] LABS: BACTERIA TRACE; RBC 0-2 rbc/hpf (0-2)
[2017-10-08 15:45] LABS: ALBUMIN 3.7 gm/dl (3.1-4.5); BUN 12 mg/dl (7-24); CHLORIDE 105 mmol/L (98-107); CREATININE 1.06 mg/dL (0.70-1.30); PHOSPHOROUS 2.9 mg/dL (2.5-4.9); SODIUM 142 mmol/L (136-145)
== END | disposition home or self-care (01) ==
LOC: LAB 15:16
PROVIDERS: Internal Medicine Nephrology
DX: I10 Essential (primary) hypertension (principal)

== ENCOUNTER 2017-10-25 12:09 | Emergency (ER) | payer BC ==
[~2017-10-25] VITALS: Ht 182.8 cm; Wt 93.0 kg
[2017-10-25 12:48] LABS: BASO # 0.1 10*3/uL (0.0-0.1); BASO % 0.6 % (0.0-1.0); EOS # 0.2 10*3/uL (0.0-0.4); EOS % 2.4 % (1.0-4.0); HEMATOCRIT 44.4 % (42.0-52.0); HEMOGLOBIN 15.7 g/dl (14.0-18.0); LYMPH # 2.1 10*3/uL (1.3-4.4); MEAN CELL VOLUME 84.6 fl (80.0-94.0); MEAN CORPUSCULAR HGB 29.9 pg (27.0-31.0); MEAN CORPUSCULAR HGB CONC 35.4 g/dl (33.0-37.0); MEAN PLATELET VOLUME 9.8 fl (9.6-12.3); MONO # 0.8 10*3/uL (0.1-1.0); MONO % 8.9 % (3.0-9.0); NEUT # 5.5 10*3/uL (2.3-7.9); NEUT % 63.9 % (47.0-73.0); PLATELET COUNT AUTOMATED 220 10*3/uL (130-400); RED BLOOD COUNT 5.25 10*6/uL (4.50-5.90); RED CELL DISTRI WIDTH 11.2 % (0-14.5); WHITE BLOOD COUNT 8.6 10*3/uL (4.8-10.8)
[2017-10-25 13:06] LABS: ALBUMIN 4.1 gm/dl (3.1-4.5); ALKALINE PHOSPHATASE 114 U/L (45-117); BUN 13 mg/dl (7-24); CHLORIDE 96 mmol/L (98-107); CREATININE 1.06 mg/dL (0.70-1.30); POTASSIUM 3.4 mmol/L (3.5-5.1); SGOT/AST 21 IU/L (3-35); SGPT/ALT 28 U/L (12-78); SODIUM 136 mmol/L (136-145); TOTAL PROTEIN 7.3 gm/dL (6.4-8.2)
[2017-10-25 16:19] VITALS: BP 128/78
[2017-10-25] MEDS ORDERED: ZOFRAN ODT4 MG SL (16:47)
[2017-10-25] MEDS ORDERED: ATIVAN1 MG PO (16:48)
== END 2017-10-25 16:53 | disposition home or self-care (01) ==
LOC: ED 12:09
PROVIDERS: Emergency Medicine
DX: K29.70 Gastritis, unspecified, without bleeding (principal); G43.909 Migraine, unspecified, not intractable, without status migrainosus; I25.10 Atherosclerotic heart disease of native coronary artery without angina pectoris; K21.9 Gastro-esophageal reflux disease without esophagitis; E78.5 Hyperlipidemia, unspecified; I10 Essential (primary) hypertension; Z98.890 Other specified postprocedural states; Z95.5 Presence of coronary angioplasty implant and graft; Z79.82 Long term (current) use of aspirin; Z79.899 Other long term (current) drug therapy; Z88.5 Allergy status to narcotic agent; Z88.8 Allergy status to other drugs, medicaments and biological substances

== ENCOUNTER 2017-12-19 18:51 | Emergency (ER) | payer SELFPAY ==
[~2017-12-19] VITALS: Ht 182.8 cm; Wt 93.0 kg
[2017-12-19] MEDS ORDERED: METOPROLOL SUCC50 M1 PO (19:01)
[2017-12-19 19:17] LABS: BASO % 0.4 % (0.0-1.0); EOS # 0.2 10*3/uL (0.0-0.4); EOS % 1.7 % (1.0-4.0); HEMATOCRIT 44.8 % (42.0-52.0); HEMOGLOBIN 15.2 g/dl (14.0-18.0); LYMPH # 3.1 10*3/uL (1.3-4.4); LYMPH % 31.9 % (27.0-41.0); MEAN CELL VOLUME 86.3 fl (80.0-94.0); MEAN CORPUSCULAR HGB 29.3 pg (27.0-31.0); MEAN CORPUSCULAR HGB CONC 33.9 g/dl (33.0-37.0); MEAN PLATELET VOLUME 9.5 fl (9.6-12.3); MONO # 0.8 10*3/uL (0.1-1.0); MONO % 8.1 % (3.0-9.0); NEUT # 5.6 10*3/uL (2.3-7.9); NEUT % 57.5 % (47.0-73.0); PLATELET COUNT AUTOMATED 213 10*3/uL (130-400); RED BLOOD COUNT 5.19 10*6/uL (4.50-5.90); RED CELL DISTRI WIDTH 11.7 % (0-14.5); WHITE BLOOD COUNT 9.8 10*3/uL (4.8-10.8)
[2017-12-19 19:37] LABS: ALBUMIN 3.8 gm/dl (3.1-4.5); ALKALINE PHOSPHATASE 90 U/L (45-117); BUN 13 mg/dl (7-24); CHLORIDE 104 mmol/L (98-107); CREATININE 1.12 mg/dL (0.70-1.30); LIPASE 208 U/L (73-393); POTASSIUM 3.9 mmol/L (3.5-5.1); SGOT/AST 19 IU/L (3-35); SGPT/ALT 38 U/L (12-78); SODIUM 140 mmol/L (136-145); TOTAL PROTEIN 6.8 gm/dL (6.4-8.2)
[2017-12-19 19:38] LABS: TROPONIN I < 0.015 ng/ml (<0.045)
[2017-12-19 19:41] LABS: ACT PARTIAL THROMBO TIME 23.4 SECONDS (20.8-31.5); INTERNATIONAL NORM RATIO 0.9 (2.0-3.5)
[2017-12-19 20:05] VITALS: BP 126/73
== END 2017-12-19 20:50 | disposition home or self-care (01) ==
LOC: ED 18:51
PROVIDERS: Emergency Medicine
DX: R07.89 Other chest pain (principal); I25.10 Atherosclerotic heart disease of native coronary artery without angina pectoris; K21.9 Gastro-esophageal reflux disease without esophagitis; E78.5 Hyperlipidemia, unspecified; I10 Essential (primary) hypertension; G43.909 Migraine, unspecified, not intractable, without status migrainosus; Z95.5 Presence of coronary angioplasty implant and graft; Z98.890 Other specified postprocedural states; Z90.89 Acquired absence of other organs; Z79.82 Long term (current) use of aspirin; Z88.5 Allergy status to narcotic agent; Z88.8 Allergy status to other drugs, medicaments and biological substances

== ENCOUNTER 2018-08-12 16:47 | Emergency (ER) | payer BC ==
[~2018-08-12] VITALS: Ht 180.3 cm; Wt 93.0 kg
--- NOTE | ~2018-08-12 | EKG ---
[place], [place] ELECTROCARDIOGRAM REPORT NAME: NBA LEONARD UNIT #: [id number] ROOM: DOCTOR: EPIPHANY DRAFT REPORT BIRTHDATE: [birth year] [facility] Test Date: 2018-08-12 Test Time: 16:52:33 Pat Name: NBA LEONARD Department: Room: Gender: M Musical Instrument Supervisor: Kellee Rousseau : 1960 Requested By: TERESA HOBSON Order Number: [id number] Reading MD: Pura Ji MD Measurements Intervals Bradley Rate: 62 P: 29 MA: 180 QRS: 41 QRSD: 104 T: 11 QT: 424 QTc: 431 Interpretive Statements Sinus rhythm Abnormal R-wave progression, early transition Electronically Signed On 08-14-2018 7:29:56 PST by Pura Ji MD CM:EKGRPT:ELECTROCARDIOGRAM REPORT [id number] TERESA MACHADO DRAFT REPORT TERESA HOBSON DO
[~2018-08-12 16:47] MED LIST changes: +METOPROLOL SUCC50 M1 PO
[2018-08-12 16:50] VITALS: BP 154/85
[2018-08-12 17:12] LABS: BASO % 0.5 % (0.0-1.0); EOS # 0.1 10*3/uL (0.0-0.4); EOS % 1.4 % (1.0-4.0); HEMATOCRIT 43.2 % (42.0-52.0); LYMPH # 1.4 10*3/uL (1.3-4.4); LYMPH % 17.1 % (27.0-41.0); MEAN CELL VOLUME 85.4 fl (80.0-94.0); MEAN CORPUSCULAR HGB 29.6 pg (27.0-31.0); MEAN CORPUSCULAR HGB CONC 34.7 g/dl (33.0-37.0); MEAN PLATELET VOLUME 9.7 fl (9.6-12.3); MONO # 0.5 10*3/uL (0.1-1.0); MONO % 6.4 % (3.0-9.0); NEUT # 6.2 10*3/uL (2.3-7.9); NEUT % 74.2 % (47.0-73.0); PLATELET COUNT AUTOMATED 230 10*3/uL (130-400); RED BLOOD COUNT 5.06 10*6/uL (4.50-5.90); RED CELL DISTRI WIDTH 11.8 % (0-14.5); WHITE BLOOD COUNT 8.4 10*3/uL (4.8-10.8)
[2018-08-12 17:28] LABS: ALBUMIN 3.9 gm/dl (3.1-4.5); ALKALINE PHOSPHATASE 91 U/L (45-117); BUN 18 mg/dl (7-24); CHLORIDE 100 mmol/L (98-107); CREATININE 1.07 mg/dL (0.70-1.30); POTASSIUM 3.6 mmol/L (3.5-5.1); SGOT/AST 17 IU/L (3-35); SGPT/ALT 29 U/L (12-78); SODIUM 139 mmol/L (136-145); TOTAL PROTEIN 7.1 gm/dL (6.4-8.2)
[2018-08-12 17:32] LABS: TROPONIN I < 0.015 ng/ml (<0.045)
[2018-08-12] MEDS ORDERED: Zofran4 MG PO (18:13)
== END 2018-08-12 18:35 | disposition home or self-care (01) ==
LOC: ED 16:47
PROVIDERS: Emergency Medicine
DX: R11.0 Nausea (principal); R10.13 Epigastric pain; R42 Dizziness and giddiness; I25.10 Atherosclerotic heart disease of native coronary artery without angina pectoris; K21.9 Gastro-esophageal reflux disease without esophagitis; I10 Essential (primary) hypertension; G43.909 Migraine, unspecified, not intractable, without status migrainosus; E78.5 Hyperlipidemia, unspecified; Z88.8 Allergy status to other drugs, medicaments and biological substances; Z88.6 Allergy status to analgesic agent; Z79.899 Other long term (current) drug therapy; Z79.82 Long term (current) use of aspirin; Z95.5 Presence of coronary angioplasty implant and graft

== ENCOUNTER 2018-09-29 06:31 | Emergency (ER) | payer BC ==
[~2018-09-29] VITALS: Ht 180.3 cm; Wt 93.0 kg
[2018-09-29 06:31] VITALS: BP 147/71
[~2018-09-29 06:31] MED LIST changes: +Zofran4 MG PO
[2018-09-29 06:52] LABS: BASO % 0.2 % (0.0-1.0); EOS # 0.2 10*3/uL (0.0-0.4); EOS % 1.5 % (1.0-4.0); HEMATOCRIT 50.7 % (42.0-52.0); HEMOGLOBIN 17.4 g/dl (14.0-18.0); LYMPH % 6.2 % (27.0-41.0); MEAN CELL VOLUME 87.7 fl (80.0-94.0); MEAN CORPUSCULAR HGB 30.1 pg (27.0-31.0); MEAN CORPUSCULAR HGB CONC 34.3 g/dl (33.0-37.0); MEAN PLATELET VOLUME 9.7 fl (9.6-12.3); MONO # 1.2 10*3/uL (0.1-1.0); MONO % 7.4 % (3.0-9.0); NEUT # 13.2 10*3/uL (2.3-7.9); NEUT % 84.2 % (47.0-73.0); PLATELET COUNT AUTOMATED 229 10*3/uL (130-400); RED BLOOD COUNT 5.78 10*6/uL (4.50-5.90); WHITE BLOOD COUNT 15.6 10*3/uL (4.8-10.8)
[2018-09-29 07:06] LABS: ALKALINE PHOSPHATASE 90 U/L (45-117); BUN 21 mg/dl (7-24); CHLORIDE 102 mmol/L (98-107); CREATININE 1.11 mg/dL (0.70-1.30); LIPASE 797 U/L (73-393); POTASSIUM 3.6 mmol/L (3.5-5.1); SGOT/AST 18 IU/L (3-35); SGPT/ALT 38 U/L (12-78); SODIUM 138 mmol/L (136-145)
[2018-09-29] MEDS ORDERED: ZOFRAN4 MG PO (10:13)
[2018-09-29] MEDS ORDERED: IMODIUM A-D2 M2 PO (10:14)
== END 2018-09-29 10:27 | disposition home or self-care (01) ==
LOC: ED 06:31
PROVIDERS: Emergency Medicine
DX: K52.9 Noninfective gastroenteritis and colitis, unspecified (principal); K85.90 Acute pancreatitis without necrosis or infection, unspecified; I25.10 Atherosclerotic heart disease of native coronary artery without angina pectoris; K21.9 Gastro-esophageal reflux disease without esophagitis; E78.5 Hyperlipidemia, unspecified; I10 Essential (primary) hypertension; G43.909 Migraine, unspecified, not intractable, without status migrainosus; Z88.8 Allergy status to other drugs, medicaments and biological substances; Z88.6 Allergy status to analgesic agent; Z79.899 Other long term (current) drug therapy; Z79.82 Long term (current) use of aspirin

== ENCOUNTER → 2018-10-01 | Outpatient (CLI) | payer BC ==
[~2018-10-01] MED LIST changes: +IMODIUM A-D2 M2 PO; +ZOFRAN4 MG PO
[2018-10-01 08:22] LABS: BASO % 0.4 % (0.0-1.0); EOS # 0.3 10*3/uL (0.0-0.4); EOS % 4.9 % (1.0-4.0); HEMATOCRIT 43.9 % (42.0-52.0); LYMPH % 29.5 % (27.0-41.0); MEAN CELL VOLUME 87.8 fl (80.0-94.0); MEAN CORPUSCULAR HGB CONC 34.2 g/dl (33.0-37.0); MEAN PLATELET VOLUME 9.9 fl (9.6-12.3); MONO % 14.5 % (3.0-9.0); NEUT # 3.3 10*3/uL (2.3-7.9); NEUT % 50.1 % (47.0-73.0); PLATELET COUNT AUTOMATED 209 10*3/uL (130-400); RED CELL DISTRI WIDTH 11.9 % (0-14.5); WHITE BLOOD COUNT 6.7 10*3/uL (4.8-10.8)
[2018-10-01 08:52] LABS: ALBUMIN 3.1 gm/dl (3.1-4.5); BUN 12 mg/dl (7-24); CHLORIDE 101 mmol/L (98-107); CREATININE 1.06 mg/dL (0.70-1.30); LIPASE 96 U/L (73-393); POTASSIUM 3.5 mmol/L (3.5-5.1); SGOT/AST 24 IU/L (3-35); SGPT/ALT 30 U/L (12-78); SODIUM 137 mmol/L (136-145)
[2018-10-01 08:52] LABS: CHOLESTEROL 101 mg/dL (<200); TRIGLYCERIDES 112 mg/dl (<150); VLDL CHOLESTEROL 22 mg/dL (6-40)
[2018-10-01 08:53] LABS: ALKALINE PHOSPHATASE 61 U/L (45-117)
[2018-10-01 08:55] LABS: HDL CHOLESTEROL 35 mg/dl (40-60); LDL CHOLESTEROL 44 mg/dL (9-159)
== END | disposition home or self-care (01) ==
LOC: LAB 00:53
PROVIDERS: Emergency Medicine; Internal Medicine Cardiovascular Disease
DX: K85.90 Acute pancreatitis without necrosis or infection, unspecified (principal); I10 Essential (primary) hypertension; Z95.5 Presence of coronary angioplasty implant and graft; Z79.899 Other long term (current) drug therapy

== ENCOUNTER → 2019-01-07 | Outpatient (CLI) | payer BC ==
[2019-01-07 10:16] LABS: ALBUMIN 3.9 gm/dl (3.1-4.5); ALKALINE PHOSPHATASE 86 U/L (45-117); BUN 15 mg/dl (7-24); CHLORIDE 106 mmol/L (98-107); CHOLESTEROL 169 mg/dL (<200); CREATININE 1.03 mg/dL (0.70-1.30); HDL CHOLESTEROL 49 mg/dl (40-60); LDL CHOLESTEROL 92 mg/dL (9-159); POTASSIUM 3.9 mmol/L (3.5-5.1); SGOT/AST 19 IU/L (3-35); SGPT/ALT 26 U/L (12-78); SODIUM 140 mmol/L (136-145); TOTAL PROTEIN 7.1 gm/dL (6.4-8.2); TRIGLYCERIDES 140 mg/dl (<150); VLDL CHOLESTEROL 28 mg/dL (6-40)
[2019-01-07 11:30] LABS: VITAMIN D, 25-HYDROXY 28.4 ng/mL (30-100)
== END | disposition home or self-care (01) ==
LOC: LAB 09:20
PROVIDERS: Internal Medicine Endocrinology, Diabetes & Metabolism; Physician Assistant
DX: E78.2 Mixed hyperlipidemia (principal); I10 Essential (primary) hypertension; F41.1 Generalized anxiety disorder; E78.00 Pure hypercholesterolemia, unspecified; G43.019 Migraine without aura, intractable, without status migrainosus; R73.01 Impaired fasting glucose; E04.2 Nontoxic multinodular goiter

== ENCOUNTER → 2019-05-12 | Outpatient (CLI) | payer BC ==
[2019-05-12 09:35] LABS: ALBUMIN 3.8 gm/dl (3.1-4.5); ALKALINE PHOSPHATASE 79 U/L (45-117); BUN 16 mg/dl (7-24); CHLORIDE 104 mmol/L (98-107); CHOLESTEROL 189 mg/dL (<200); FREE T4 1.06 ng/dl (0.76-1.46); HDL CHOLESTEROL 45 mg/dl (40-60); LDL CHOLESTEROL 113 mg/dL (9-159); SGOT/AST 10 IU/L (3-35); SGPT/ALT 28 U/L (12-78); SODIUM 140 mmol/L (136-145); TOTAL PROTEIN 6.7 gm/dL (6.4-8.2); TRIGLYCERIDES 157 mg/dl (<150); VLDL CHOLESTEROL 31 mg/dL (6-40)
[2019-05-12 09:39] LABS: THYROID STIM HORMONE (HS) 0.754 uIU/ml (0.358-4.75)
== END | disposition home or self-care (01) ==
LOC: LAB 08:26
PROVIDERS: Internal Medicine Endocrinology, Diabetes & Metabolism
DX: E78.2 Mixed hyperlipidemia (principal); E55.9 Vitamin D deficiency, unspecified; R73.09 Other abnormal glucose

== ENCOUNTER → 2019-10-10 | Outpatient (CLI) | payer BC ==
[2019-10-10 12:56] LABS: ALBUMIN 3.9 gm/dl (3.1-4.5); ALKALINE PHOSPHATASE 91 U/L (45-117); BUN 13 mg/dl (7-24); CHLORIDE 110 mmol/L (98-107); CREATININE 1.04 mg/dL (0.70-1.30); POTASSIUM 4.4 mmol/L (3.5-5.1); SGOT/AST 14 IU/L (3-35); SGPT/ALT 28 U/L (12-78); SODIUM 141 mmol/L (136-145); TOTAL PROTEIN 6.8 gm/dL (6.4-8.2)
[2019-10-10 12:57] LABS: CHOLESTEROL 191 mg/dL (<200)
[2019-10-10 13:01] LABS: HDL CHOLESTEROL 47 mg/dl (40-60); LDL CHOLESTEROL 123 mg/dL (9-159); TRIGLYCERIDES 103 mg/dl (<150); VLDL CHOLESTEROL 21 mg/dL (6-40)
[2019-10-10 13:05] LABS: FREE T4 1.02 ng/dl (0.76-1.46); THYROID STIM HORMONE (HS) 0.935 uIU/ml (0.358-4.75)
[2019-10-10 13:16] LABS: VITAMIN D, 25-HYDROXY 26.3 ng/mL (30-100)
== END | disposition home or self-care (01) ==
LOC: LAB 11:32
PROVIDERS: Internal Medicine Cardiovascular Disease; Internal Medicine Endocrinology, Diabetes & Metabolism
DX: E29.1 Testicular hypofunction (principal); E55.9 Vitamin D deficiency, unspecified; E11.9 Type 2 diabetes mellitus without complications; I10 Essential (primary) hypertension; E04.2 Nontoxic multinodular goiter; I25.10 Atherosclerotic heart disease of native coronary artery without angina pectoris

== ENCOUNTER → 2020-08-09 | Outpatient (CLI) | payer OTHER | END | disposition home or self-care (01) | LOC: COVID19 08:29 | PROVIDERS: ATTEND Emergency Medicine | DX: Z20.828 Contact with and (suspected) exposure to other viral communicable diseases (principal) ==

== ENCOUNTER 2020-10-10 16:20 | Inpatient (IN) | payer OTHER ==
[~2020-10-10] VITALS: Ht 177.8 cm; Wt 96.8 kg
[2020-10-10 16:28] VITALS: BP 147/89
[2020-10-10 16:55] LABS: BASO % 0.3 % (0.0-1.0); EOS # 0.2 10*3/uL (0.0-0.4); HEMATOCRIT 51.2 % (42.0-52.0); LYMPH # 1.7 10*3/uL (1.3-4.4); LYMPH % 11.8 % (27.0-41.0); MEAN CELL VOLUME 86.2 fl (80.0-94.0); MEAN CORPUSCULAR HGB 28.8 pg (27.0-31.0); MEAN CORPUSCULAR HGB CONC 33.4 g/dl (33.0-37.0); MONO % 6.9 % (3.0-9.0); NEUT # 11.4 10*3/uL (2.3-7.9); NEUT % 79.7 % (47.0-73.0); PLATELET COUNT AUTOMATED 261 10*3/uL (130-400); RED BLOOD COUNT 5.94 10*6/uL (4.50-5.90); RED CELL DISTRI WIDTH 11.3 % (0-14.5); WHITE BLOOD COUNT 14.3 10*3/uL (4.8-10.8)
[2020-10-10 17:10] LABS: ALBUMIN 4.4 gm/dl (3.1-4.5); ALKALINE PHOSPHATASE 163 U/L (45-117); BUN 14 mg/dl (7-24); CHLORIDE 102 mmol/L (98-107); CREATININE 1.17 mg/dL (0.70-1.30); LIPASE 89 U/L (73-393); POTASSIUM 3.7 mmol/L (3.5-5.1); SGOT/AST 17 IU/L (3-35); SGPT/ALT 35 U/L (12-78); SODIUM 136 mmol/L (136-145); TOTAL PROTEIN 7.7 gm/dL (6.4-8.2)
[2020-10-10 19:59] LABS: BILIRUBIN Negative (Negative); BLOOD Negative (Negative); CLARITY Clear (Clear); COLOR Yellow (Yellow); GLUCOSE Negative (Negative); KETONE 1+ (Negative); LEUKO ESTERASE Negative (Negative); NITRITE Negative (Negative); SPECIFIC GRAVITY >= 1.030 (1.001-1.030)
[2020-10-10 20:04] LABS: BACTERIA TRACE; EPITHELIAL CELLS 0-2; RBC 0-2 rbc/hpf (0-2); WBC 0-2 wbc/hpf (0-5)
[2020-10-10 21:24] VITALS: BP 125/70
[2020-10-10] MEDS ORDERED: NORVASC5 MG PO (21:33)
[2020-10-11 04:26] LABS: BASO % 0.5 % (0.0-1.0); EOS # 0.1 10*3/uL (0.0-0.4); EOS % 1.1 % (1.0-4.0); HEMATOCRIT 41.7 % (42.0-52.0); LYMPH # 1.2 10*3/uL (1.3-4.4); LYMPH % 14.1 % (27.0-41.0); MEAN CELL VOLUME 85.8 fl (80.0-94.0); MEAN CORPUSCULAR HGB 28.6 pg (27.0-31.0); MEAN CORPUSCULAR HGB CONC 33.3 g/dl (33.0-37.0); MEAN PLATELET VOLUME 10.3 fl (9.6-12.3); MONO # 1.3 10*3/uL (0.1-1.0); MONO % 14.4 % (3.0-9.0); NEUT # 6.1 10*3/uL (2.3-7.9); NEUT % 69.7 % (47.0-73.0); PLATELET COUNT AUTOMATED 200 10*3/uL (130-400); RED BLOOD COUNT 4.86 10*6/uL (4.50-5.90); RED CELL DISTRI WIDTH 11.2 % (0-14.5); WHITE BLOOD COUNT 8.8 10*3/uL (4.8-10.8)
[2020-10-11 04:44] LABS: ALBUMIN 3.3 gm/dl (3.1-4.5); BUN 15 mg/dl (7-24); CHLORIDE 108 mmol/L (98-107); CREATININE 0.93 mg/dL (0.70-1.30); POTASSIUM 3.8 mmol/L (3.5-5.1); SGOT/AST 6 IU/L (3-35); SGPT/ALT 26 U/L (12-78); SODIUM 140 mmol/L (136-145)
[2020-10-11 04:45] LABS: ALKALINE PHOSPHATASE 116 U/L (45-117); TOTAL PROTEIN 5.9 gm/dL (6.4-8.2)
[2020-10-11 06:35] VITALS: BP 122/62
[2020-10-11 09:31] VITALS: BP 115/66
[2020-10-11 10:30] VITALS: BP 130/72
== END 2020-10-11 16:30 | disposition home or self-care (01) | DRG 247 ==
LOC: ED 16:20 → EDHOLD 22:01 → 5E 22:01 → EDHOLD 22:01 → 5E 10-11 08:51
PROVIDERS: Emergency Medicine; Internal Medicine; ADMIT Internal Medicine; ATTEND Internal Medicine
DX: K56.600 Partial intestinal obstruction, unspecified as to cause (principal); K52.9 Noninfective gastroenteritis and colitis, unspecified; R82.4 Acetonuria; E83.41 Hypermagnesemia; E78.5 Hyperlipidemia, unspecified; E87.8 Other disorders of electrolyte and fluid balance, not elsewhere classified; R73.9 Hyperglycemia, unspecified; E80.6 Other disorders of bilirubin metabolism; T16.9XXA Foreign body in ear, unspecified ear, initial encounter; X58.XXXA Exposure to other specified factors, initial encounter; I25.10 Atherosclerotic heart disease of native coronary artery without angina pectoris; I10 Essential (primary) hypertension; K21.00 Gastro-esophageal reflux disease with esophagitis, without bleeding; Z88.5 Allergy status to narcotic agent; Z88.8 Allergy status to other drugs, medicaments and biological substances; Z79.82 Long term (current) use of aspirin; Z79.899 Other long term (current) drug therapy; Z82.3 Family history of stroke; Y93.89 Activity, other specified; Y92.89 Other specified places as the place of occurrence of the external cause; Y99.8 Other external cause status

== ENCOUNTER → 2021-01-19 | Outpatient (CLI) | payer OTHER ==
[~2021-01-19] MED LIST changes: +NORVASC5 MG PO
[2021-01-19 09:06] LABS: HEMATOCRIT 43.9 % (42.0-52.0); MEAN CELL VOLUME 86.1 fl (80.0-94.0); MEAN CORPUSCULAR HGB 29.8 pg (27.0-31.0); MEAN CORPUSCULAR HGB CONC 34.6 g/dl (33.0-37.0); RED BLOOD COUNT 5.1 10*6/uL (4.50-5.90); RED CELL DISTRI WIDTH 11.9 % (0-14.5); WHITE BLOOD COUNT 7.4 10*3/uL (4.8-10.8)
[2021-01-19 09:23] LABS: ALBUMIN 3.9 gm/dl (3.1-4.5); ALKALINE PHOSPHATASE 129 U/L (45-117); BUN 12 mg/dl (7-24); CHLORIDE 106 mmol/L (98-107); CHOLESTEROL 135 mg/dL (<200); LDL CHOLESTEROL 70 mg/dL (9-159); POTASSIUM 4.3 mmol/L (3.5-5.1); SGOT/AST 17 IU/L (3-35); SGPT/ALT 29 U/L (12-78); SODIUM 139 mmol/L (136-145); TOTAL PROTEIN 6.9 gm/dL (6.4-8.2); TRIGLYCERIDES 78 mg/dl (<150)
== END | disposition home or self-care (01) ==
LOC: LAB 08:35
PROVIDERS: ATTEND Physician Assistant
DX: Z12.5 Encounter for screening for malignant neoplasm of prostate (principal); E78.00 Pure hypercholesterolemia, unspecified; I77.71 Dissection of carotid artery; K21.9 Gastro-esophageal reflux disease without esophagitis; H90.41 Sensorineural hearing loss, unilateral, right ear, with unrestricted hearing on the contralateral side

== ENCOUNTER → 2021-02-24 | Outpatient (CLI) | payer OTHER ==
[2021-02-24 12:29] LABS: ALBUMIN 3.8 gm/dl (3.1-4.5); ALKALINE PHOSPHATASE 147 U/L (45-117); BUN 14 mg/dl (7-24); CHLORIDE 107 mmol/L (98-107); CHOLESTEROL 137 mg/dL (<200); CREATININE 0.87 mg/dL (0.70-1.30); FREE T4 0.96 ng/dl (0.76-1.46); LDL CHOLESTEROL 72 mg/dL (9-159); POTASSIUM 4.4 mmol/L (3.5-5.1); SGPT/ALT 33 U/L (12-78); SODIUM 140 mmol/L (136-145); TOTAL PROTEIN 7.2 gm/dL (6.4-8.2); TRIGLYCERIDES 76 mg/dl (<150)
[2021-02-24 12:33] LABS: SGOT/AST 18 IU/L (3-35); THYROID STIM HORMONE (HS) 0.749 uIU/ml (0.358-4.75)
[2021-02-24 13:08] LABS: VITAMIN D, 25-HYDROXY 33.8 ng/mL (30-100)
== END | disposition home or self-care (01) ==
LOC: LAB 11:29
PROVIDERS: ATTEND Internal Medicine Endocrinology, Diabetes & Metabolism
DX: E11.9 Type 2 diabetes mellitus without complications (principal); E55.9 Vitamin D deficiency, unspecified; E78.2 Mixed hyperlipidemia; E04.2 Nontoxic multinodular goiter

== ENCOUNTER → 2021-04-18 | Outpatient (CLI) | payer OTHER | END | disposition home or self-care (01) | LOC: CARD 08:57 | PROVIDERS: ATTEND Physician Assistant | DX: I49.1 Atrial premature depolarization (principal); R00.2 Palpitations ==

== ENCOUNTER → 2021-05-31 | Outpatient (CLI) | payer OTHER | END | disposition home or self-care (01) | LOC: US 07:30 | PROVIDERS: ATTEND Physician Assistant | DX: R10.11 Right upper quadrant pain (principal) ==

== ENCOUNTER → 2021-06-01 | Outpatient (CLI) | payer OTHER | END | disposition home or self-care (01) | LOC: NM 07:26 | PROVIDERS: ATTEND Physician Assistant | DX: R10.11 Right upper quadrant pain (principal) ==

== ENCOUNTER → 2021-08-08 | Outpatient (CLI) | payer OTHER ==
[2021-08-08 07:50] LABS: ALBUMIN 3.7 gm/dl (3.1-4.5); ALKALINE PHOSPHATASE 140 U/L (45-117); BUN 15 mg/dl (7-24); CHLORIDE 107 mmol/L (98-107); CHOLESTEROL 119 mg/dL (<200); CREATININE 1.07 mg/dL (0.70-1.30); LDL CHOLESTEROL 52 mg/dL (9-159); POTASSIUM 4.1 mmol/L (3.5-5.1); SGOT/AST 19 IU/L (3-35); SGPT/ALT 42 U/L (12-78); SODIUM 141 mmol/L (136-145); TOTAL PROTEIN 6.8 gm/dL (6.4-8.2); TRIGLYCERIDES 99 mg/dl (<150)
[2021-08-09 14:05] LABS: VITAMIN D, 25-HYDROXY 41.8 ng/mL (30-100)
== END | disposition home or self-care (01) ==
LOC: LAB 07:17
PROVIDERS: ATTEND Internal Medicine Endocrinology, Diabetes & Metabolism
DX: E11.9 Type 2 diabetes mellitus without complications (principal); E29.1 Testicular hypofunction; E78.2 Mixed hyperlipidemia; I10 Essential (primary) hypertension; E55.9 Vitamin D deficiency, unspecified; E04.2 Nontoxic multinodular goiter

== ENCOUNTER → 2021-08-31 | Outpatient (CLI) | payer OTHER ==
[2021-08-31 10:37] LABS: ALBUMIN 3.7 gm/dl (3.1-4.5); TOTAL PROTEIN 6.8 gm/dL (6.4-8.2)
[2021-09-01 15:07] LABS: t-TRANSGLUTAMINASE (tTG) IGA <2 U/mL (0-3)
== END | disposition home or self-care (01) ==
LOC: LAB 09:49
PROVIDERS: ATTEND Internal Medicine Gastroenterology
DX: R14.0 Abdominal distension (gaseous) (principal); R74.8 Abnormal levels of other serum enzymes

== ENCOUNTER → 2021-09-08 | Outpatient (CLI) | payer OTHER ==
[2021-09-08 13:49] LABS: BILIRUBIN Negative (Negative); BLOOD Negative (Negative); CLARITY Clear (Clear); COLOR Yellow (Yellow); GLUCOSE Trace (Negative); KETONE Negative (Negative); LEUKO ESTERASE Negative (Negative); NITRITE Negative (Negative); PH 6.5 (4.5-8.0); SPECIFIC GRAVITY <= 1.005 (1.001-1.030); UROBILINOGEN 0.2 E.U./dl (0.0-1.0)
[2021-09-08 14:23] LABS: EPITHELIAL CELLS 0-2; WBC 0-2 wbc/hpf (0-5)
== END ==
LOC: LAB 13:12
PROVIDERS: ATTEND Emergency Medicine
DX: R30.0 Dysuria (principal)

== ENCOUNTER → 2022-02-07 | Outpatient (CLI) | payer OTHER ==
[2022-02-07 08:54] LABS: ALKALINE PHOSPHATASE 123 U/L (45-117); BUN 12 mg/dl (7-24); CHLORIDE 109 mmol/L (98-107); CHOLESTEROL 98 mg/dL (<200); CREATININE 0.96 mg/dL (0.70-1.30); LDL CHOLESTEROL 37 mg/dL (9-159); POTASSIUM 3.5 mmol/L (3.5-5.1); SGOT/AST 20 IU/L (3-35); SGPT/ALT 27 U/L (12-78); SODIUM 140 mmol/L (136-145); TOTAL PROTEIN 6.3 gm/dL (6.4-8.2); TRIGLYCERIDES 84 mg/dl (<150)
[2022-02-07 09:51] LABS: VITAMIN D, 25-HYDROXY 29.1 ng/mL (30-100)
== END | disposition home or self-care (01) ==
LOC: LAB 07:58
PROVIDERS: ATTEND Internal Medicine Endocrinology, Diabetes & Metabolism
DX: E11.9 Type 2 diabetes mellitus without complications (principal); E78.2 Mixed hyperlipidemia; I10 Essential (primary) hypertension; E55.9 Vitamin D deficiency, unspecified; E29.1 Testicular hypofunction; E04.2 Nontoxic multinodular goiter

== ENCOUNTER → 2022-08-26 | Outpatient (CLI) | payer OTHER ==
[2022-08-26 08:18] LABS: ALKALINE PHOSPHATASE 126 U/L (46-116); BUN 8 mg/dl (9-23); CHLORIDE 105 mmol/L (98-107); CHOLESTEROL 115 mg/dL (<200); CREATININE 0.89 mg/dL (0.70-1.30); FREE T4 1.43 ng/dl (0.89-1.76); LDL CHOLESTEROL 46 mg/dL (9-159); SGPT/ALT 26 U/L (10-49); SODIUM 139 mmol/L (136-145); TOTAL PROTEIN 6.5 gm/dL (6.0-8.0); TRIGLYCERIDES 93 mg/dl (<150)
== END | disposition home or self-care (01) ==
LOC: LAB 07:15
PROVIDERS: ATTEND Internal Medicine Endocrinology, Diabetes & Metabolism
DX: E11.9 Type 2 diabetes mellitus without complications (principal); E78.2 Mixed hyperlipidemia; I10 Essential (primary) hypertension; E04.2 Nontoxic multinodular goiter; E55.9 Vitamin D deficiency, unspecified

== ENCOUNTER 2022-09-04 11:36 | Emergency (ER) | payer OTHER ==
[~2022-09-04] VITALS: Wt 93.0 kg
[2022-09-04 11:45] VITALS: BP 129/89
[2022-09-04 12:13] LABS: BASO % 0.5 % (0.0-1.0); EOS # 0.2 10*3/uL (0.0-0.4); EOS % 3.1 % (1.0-4.0); HEMATOCRIT 43.7 % (42.0-52.0); LYMPH % 14.9 % (27.0-41.0); MEAN CELL VOLUME 85.4 fl (80.0-94.0); MEAN CORPUSCULAR HGB 29.1 pg (27.0-31.0); MEAN CORPUSCULAR HGB CONC 34.1 g/dl (33.0-37.0); MEAN PLATELET VOLUME 9.9 fl (9.6-12.3); MONO # 1.1 10*3/uL (0.1-1.0); MONO % 16.6 % (3.0-9.0); NEUT # 4.1 10*3/uL (2.3-7.9); NEUT % 64.6 % (47.0-73.0); PLATELET COUNT AUTOMATED 184 10*3/uL (130-400); RED BLOOD COUNT 5.12 10*6/uL (4.50-5.90); RED CELL DISTRI WIDTH 12.1 % (0-14.5); WHITE BLOOD COUNT 6.4 10*3/uL (4.8-10.8)
[2022-09-04 12:31] LABS: ALKALINE PHOSPHATASE 121 U/L (46-116); BUN 9 mg/dl (9-23); CHLORIDE 102 mmol/L (98-107); CREATININE 1.04 mg/dL (0.70-1.30); POTASSIUM 4.1 mmol/L (3.4-5.1); SGPT/ALT 30 U/L (10-49); TOTAL PROTEIN 7.2 gm/dL (6.0-8.0)
[2022-09-04] MEDS ORDERED: TAMIFLU 75MG CA75 MG PO (13:02)
== END 2022-09-04 13:06 | disposition home or self-care (01) ==
LOC: ED 11:36
PROVIDERS: Nurse Practitioner Family
DX: J10.1 Influenza due to other identified influenza virus with other respiratory manifestations (principal); Z98.890 Other specified postprocedural states; Z20.822 Contact with and (suspected) exposure to COVID-19

== ENCOUNTER → 2023-01-19 | Outpatient (CLI) | payer OTHER ==
[~2023-01-19] MED LIST changes: +TAMIFLU 75MG CA75 MG PO
[2023-01-19 08:59] LABS: VITAMIN D, 25-HYDROXY 44.4 ng/mL (30-100)
[2023-01-19 09:16] LABS: ALKALINE PHOSPHATASE 116 U/L (46-116); BUN 7 mg/dl (9-23); CHLORIDE 106 mmol/L (98-107); CHOLESTEROL 109 mg/dL (<200); FREE T4 1.24 ng/dl (0.89-1.76); LDL CHOLESTEROL 46 mg/dL (9-159); SGPT/ALT 19 U/L (10-49); THYROID STIM HORMONE (HS) 1.634 uIU/ml (0.550-4.780); TOTAL PROTEIN 6.6 gm/dL (6.0-8.0); TRIGLYCERIDES 110 mg/dl (<150)
== END | disposition home or self-care (01) ==
LOC: LAB 08:01
PROVIDERS: ATTEND Internal Medicine Endocrinology, Diabetes & Metabolism
DX: E11.9 Type 2 diabetes mellitus without complications (principal); E04.2 Nontoxic multinodular goiter; E78.2 Mixed hyperlipidemia; I10 Essential (primary) hypertension; E55.9 Vitamin D deficiency, unspecified

== ENCOUNTER → 2023-05-25 | Outpatient (CLI) | payer OTHER ==
[2023-05-25 10:11] LABS: ALKALINE PHOSPHATASE 137 U/L (46-116); BUN 11 mg/dl (9-23); CHLORIDE 105 mmol/L (98-107); CHOLESTEROL 103 mg/dL (<200); FREE T4 1.29 ng/dl (0.89-1.76); LDL CHOLESTEROL 45 mg/dL (9-159); POTASSIUM 3.8 mmol/L (3.4-5.1); SGPT/ALT 21 U/L (10-49); TOTAL PROTEIN 6.9 gm/dL (6.0-8.0); TRIGLYCERIDES 100 mg/dl (<150)
[2023-05-25 10:45] LABS: VITAMIN D, 25-HYDROXY 46.7 ng/mL (30-100)
== END | disposition home or self-care (01) ==
LOC: LAB 09:04
PROVIDERS: ATTEND Internal Medicine Endocrinology, Diabetes & Metabolism
DX: E11.9 Type 2 diabetes mellitus without complications (principal); E29.1 Testicular hypofunction; E04.2 Nontoxic multinodular goiter; E83.51 Hypocalcemia; E78.2 Mixed hyperlipidemia; I10 Essential (primary) hypertension; E55.9 Vitamin D deficiency, unspecified

== ENCOUNTER → 2023-08-07 | Outpatient (CLI) | payer OTHER ==
[2023-08-08 14:08] LABS: ANTI-SMOOTH MUSCLE ANTIBODY 11 Units (0-19)
== END | disposition home or self-care (01) ==
LOC: LAB 11:06
PROVIDERS: ATTEND Internal Medicine Gastroenterology
DX: R74.8 Abnormal levels of other serum enzymes (principal)

== ENCOUNTER → 2023-08-10 | Outpatient (CLI) | payer OTHER | END | disposition home or self-care (01) | LOC: US 03:44 | PROVIDERS: ATTEND Internal Medicine Gastroenterology | DX: R74.8 Abnormal levels of other serum enzymes (principal) ==

== ENCOUNTER → 2023-10-01 | Outpatient (CLI) | payer OTHER ==
[2023-10-01 13:06] LABS: ALKALINE PHOSPHATASE 137 U/L (46-116); BUN 10 mg/dl (9-23); CHLORIDE 108 mmol/L (98-107); CHOLESTEROL 92 mg/dL (<200); LDL CHOLESTEROL 41 mg/dL (9-159); POTASSIUM 4.1 mmol/L (3.4-5.1); SGPT/ALT 21 U/L (5-49); TRIGLYCERIDES 59 mg/dl (<150)
[2023-10-01 13:07] LABS: VITAMIN D, 25-HYDROXY 70.5 ng/mL (30-100)
== END ==
LOC: LAB 12:13
PROVIDERS: ATTEND Internal Medicine Endocrinology, Diabetes & Metabolism
DX: E04.2 Nontoxic multinodular goiter (principal); E11.9 Type 2 diabetes mellitus without complications; E55.9 Vitamin D deficiency, unspecified

== ENCOUNTER → 2023-10-19 | Outpatient (CLI) | payer OTHER ==
[2023-10-19 09:40] LABS: BASO # 0.1 10*3/uL (0.0-0.1); BASO % 0.7 % (0.0-1.0); EOS # 0.5 10*3/uL (0.0-0.4); EOS % 5.5 % (1.0-4.0); HEMATOCRIT 47.4 % (42.0-52.0); LYMPH # 2.1 10*3/uL (1.3-4.4); LYMPH % 23.7 % (27.0-41.0); MEAN CELL VOLUME 87.3 fl (80.0-94.0); MEAN CORPUSCULAR HGB 28.7 pg (27.0-31.0); MEAN CORPUSCULAR HGB CONC 32.9 g/dl (33.0-37.0); MEAN PLATELET VOLUME 9.3 fl (9.6-12.3); MONO # 0.7 10*3/uL (0.1-1.0); MONO % 8.1 % (3.0-9.0); NEUT # 5.6 10*3/uL (2.3-7.9); NEUT % 61.8 % (47.0-73.0); PLATELET COUNT AUTOMATED 273 10*3/uL (130-400); RED BLOOD COUNT 5.43 10*6/uL (4.50-5.90); RED CELL DISTRI WIDTH 11.9 % (0-14.5)
[2023-10-19 10:01] LABS: ALKALINE PHOSPHATASE 137 U/L (46-116); BUN 12 mg/dl (9-23); CHLORIDE 104 mmol/L (98-107); POTASSIUM 3.9 mmol/L (3.4-5.1); SGPT/ALT 19 U/L (5-49); TOTAL PROTEIN 7.1 gm/dL (6.0-8.0)
[2023-10-20 02:06] LABS: HDL CHOLESTEROL 51 mg/dL (>39); LDL CHOLESTEROL CALCULATION 50 mg/dL (0-99); TRIGLYCERIDES 79 mg/dL (0-149); VLDL CHOLESTEROL CALCULATION 16 mg/dL (5-40)
[2023-10-20 04:06] LABS: DHEA SULFATE 10.7 ug/dL (48.9-344.2)
== END | disposition home or self-care (01) ==
LOC: LAB 09:05
PROVIDERS: ATTEND Physician Assistant Medical
DX: Z13.228 Encounter for screening for other metabolic disorders (principal); Z12.5 Encounter for screening for malignant neoplasm of prostate; R53.83 Other fatigue; E55.9 Vitamin D deficiency, unspecified; I10 Essential (primary) hypertension; R63.5 Abnormal weight gain; E78.5 Hyperlipidemia, unspecified; E27.9 Disorder of adrenal gland, unspecified; E34.9 Endocrine disorder, unspecified; E78.2 Mixed hyperlipidemia; E63.0 Essential fatty acid [EFA] deficiency; Z13.29 Encounter for screening for other suspected endocrine disorder

== ENCOUNTER → 2023-11-14 | Outpatient (CLI) | payer OTHER | END | disposition home or self-care (01) | LOC: LAB 13:09 | PROVIDERS: ATTEND Physician Assistant | DX: Z95.5 Presence of coronary angioplasty implant and graft (principal) ==

== ENCOUNTER → 2024-01-25 | Outpatient (CLI) | payer OTHER ==
[2024-01-25 10:11] LABS: ALKALINE PHOSPHATASE 130 U/L (46-116); BUN 11 mg/dl (9-23); CHLORIDE 105 mmol/L (98-107); CHOLESTEROL 99 mg/dL (<200); FREE T4 1.26 ng/dl (0.89-1.76); LDL CHOLESTEROL 45 mg/dL (9-159); POTASSIUM 3.9 mmol/L (3.4-5.1); SGPT/ALT 16 U/L (5-49); TOTAL PROTEIN 6.7 gm/dL (6.0-8.0); TRIGLYCERIDES 57 mg/dl (<150)
[2024-01-25 10:49] LABS: VITAMIN D, 25-HYDROXY 73.5 ng/mL (30-100)
== END ==
LOC: LAB 09:16
PROVIDERS: ATTEND Internal Medicine Endocrinology, Diabetes & Metabolism
DX: I10 Essential (primary) hypertension (principal); E11.9 Type 2 diabetes mellitus without complications; E04.2 Nontoxic multinodular goiter; E78.2 Mixed hyperlipidemia; E55.9 Vitamin D deficiency, unspecified

== ENCOUNTER → 2024-05-07 | Outpatient (CLI) | payer OTHER ==
[2024-05-07 08:39] LABS: BASO # 0.1 10*3/uL (0.0-0.1); BASO % 0.9 % (0.0-1.0); EOS # 1.1 10*3/uL (0.0-0.4); EOS % 11.2 % (1.0-4.0); HEMATOCRIT 46.9 % (42.0-52.0); LYMPH % 21.7 % (27.0-41.0); MEAN CELL VOLUME 85.1 fl (80.0-94.0); MEAN CORPUSCULAR HGB 27.9 pg (27.0-31.0); MEAN CORPUSCULAR HGB CONC 32.8 g/dl (33.0-37.0); MEAN PLATELET VOLUME 9.8 fl (9.6-12.3); MONO # 0.7 10*3/uL (0.1-1.0); MONO % 7.8 % (3.0-9.0); NEUT # 5.4 10*3/uL (2.3-7.9); NEUT % 58.1 % (47.0-73.0); PLATELET COUNT AUTOMATED 235 10*3/uL (130-400); RED BLOOD COUNT 5.51 10*6/uL (4.50-5.90); RED CELL DISTRI WIDTH 12.8 % (0-14.5); WHITE BLOOD COUNT 9.3 10*3/uL (4.8-10.8)
[2024-05-07 09:12] LABS: ALKALINE PHOSPHATASE 99 U/L (46-116); BUN 13 mg/dl (9-23); CHLORIDE 105 mmol/L (98-107); CHOLESTEROL 87 mg/dL (<200); LDL CHOLESTEROL 37 mg/dL (9-159); POTASSIUM 3.5 mmol/L (3.4-5.1); SGPT/ALT 22 U/L (5-49); TOTAL PROTEIN 6.6 gm/dL (6.0-8.0); TRIGLYCERIDES 56 mg/dl (<150)
[2024-05-07 09:35] LABS: VITAMIN D, 25-HYDROXY 77.2 ng/mL (30-100)
== END | disposition home or self-care (01) ==
LOC: LAB 08:15
PROVIDERS: ATTEND Physician Assistant Medical
DX: Z13.21 Encounter for screening for nutritional disorder (principal); Z13.228 Encounter for screening for other metabolic disorders; Z13.29 Encounter for screening for other suspected endocrine disorder; R63.5 Abnormal weight gain; E78.2 Mixed hyperlipidemia; R68.89 Other general symptoms and signs; L65.9 Nonscarring hair loss, unspecified; R53.83 Other fatigue; E55.9 Vitamin D deficiency, unspecified

== ENCOUNTER 2024-10-28 00:22 | Emergency (ER) | payer OTHER ==
[~2024-10-28] VITALS: Ht 180.3 cm; Wt 90.7 kg
[2024-10-28 00:33] VITALS: BP 143/78
[2024-10-28] MEDS ORDERED: SODIUM CHLORIDE 0.9% 500 ML IV ONE (00:35)
[2024-10-28] MEDS ORDERED: Dicyclomine Hydrochloride 20 MG/10 ML OSYR PO STA (00:35)
[2024-10-28] MEDS ORDERED: Lidocaine Hydrochloride 15 ML UDC PO STA (00:35)
[2024-10-28] MEDS ORDERED: MG-AL HYDROXIDE/SIMETICONE 30 ML UDC PO STA (00:35)
[2024-10-28] MEDS ORDERED: Ondansetron Hydrochloride 4 MG/2 ML VIAL IV ONE ×2 (00:35→05:50)
[2024-10-28] MEDS ORDERED: SODIUM CHLORIDE 0.9% 1,000 ML IV ONE (00:40)
[2024-10-28 01:01] LABS: BASO # 0.1 10*3/uL (0.0-0.1); BASO % 0.3 % (0.0-1.0); EOS # 0.5 10*3/uL (0.0-0.4); EOS % 3.3 % (1.0-4.0); HEMATOCRIT 50.3 % (42.0-52.0); MEAN CELL VOLUME 84.7 fl (80.0-94.0); MEAN CORPUSCULAR HGB 28.6 pg (27.0-31.0); MEAN CORPUSCULAR HGB CONC 33.8 g/dl (33.0-37.0); MEAN PLATELET VOLUME 9.8 fl (9.6-12.3); MONO # 0.9 10*3/uL (0.1-1.0); NEUT % 86.9 % (47.0-73.0); PLATELET COUNT AUTOMATED 246 10*3/uL (130-400); RED BLOOD COUNT 5.94 10*6/uL (4.50-5.90); RED CELL DISTRI WIDTH 11.8 % (0-14.5); WHITE BLOOD COUNT 14.9 10*3/uL (4.8-10.8)
[2024-10-28 01:20] LABS: BUN 19 mg/dl (9-23); CHLORIDE 104 mmol/L (98-107); POTASSIUM 4.2 mmol/L (3.4-5.1)
[2024-10-28] MEDS ORDERED: SODIUM CHLORIDE 0.9% 1,000 ML IV SCH (03:05)
[2024-10-28] MEDS ORDERED: Ketorolac Tromethamine 30 MG/ML VIAL IV ONE (04:30)
[2024-10-28] MEDS ORDERED: LOPERAMIDE HCL2 MG PO (05:58)
[2024-10-28] MEDS ORDERED: Ondansetron4 MG PO (05:58)
== END 2024-10-28 06:09 | disposition home or self-care (01) ==
LOC: ED 00:22
PROVIDERS: Internal Medicine
DX: K52.9 Noninfective gastroenteritis and colitis, unspecified (principal); Z20.822 Contact with and (suspected) exposure to COVID-19; R65.10 Systemic inflammatory response syndrome (SIRS) of non-infectious origin without acute organ dysfunction; K21.9 Gastro-esophageal reflux disease without esophagitis; I10 Essential (primary) hypertension; E78.00 Pure hypercholesterolemia, unspecified; Z88.5 Allergy status to narcotic agent; Z88.8 Allergy status to other drugs, medicaments and biological substances; Z98.890 Other specified postprocedural states